=== PATIENT | female | born 1990 | race Caucasian/White ===

== ENCOUNTER 2018-10-12 12:11 | Emergency (ER) | payer OTHER ==
[~2018-10-12] VITALS: Ht 170.2 cm; Wt 155.0 kg
[2018-10-12] MEDS ORDERED: SODIUM CHLORIDE 0.9% 1,000 ML IV ONE (12:53)
[2018-10-12 14:53] LABS: CLARITY URINE CLEAR (CLEAR); COLOR URINE YELLOW (YELLOW); KETONES URINE NEGATIVE (NEGATIVE); LEUKOCYTE ESTERASE URINE NEGATIVE (NEGATIVE); NITRITE URINE NEGATIVE (NEGATIVE); OCCULT BLOOD URINE NEGATIVE (NEGATIVE); PROTEIN URINE NEGATIVE (NEGATIVE); SPECIFIC GRAVITY URINE 1.008 (1.005-1.030); UROBILINOGEN URINE 0.2 E.U./dL (0.2-1.0)
[2018-10-12 15:53] LABS: BASOPHILS % 0.9 % (0.0-2.0); EOSINOPHILS % 3.2 % (0.0-5.0); HEMATOCRIT. 38.9 % (36.0-48.0); LYMPHOCYTES % 27.9 % (20.0-50.0); MEAN CORPUSCULAR HEMOGLOBIN 28.6 pg (28.0-32.0); MEAN CORPUSCULAR VOLUME 85.5 fL (81.0-99.0); MEAN PLATELET VOLUME 8.4 fl (7.4-10.4); MONOCYTES % 6.7 % (2.0-8.0); NEUTROPHILS % 61.3 % (40.0-76.0); PLATELET 266 x1000/uL (130-400); RED BLOOD CELL COUNT 4.56 mill/uL (4.2-5.4); RED CELL DISTRIBUTION WIDTH 14.2 % (11.6-14.6)
[2018-10-12 15:55] LABS: CHLORIDE 108 mEq/L (98-107)
[2018-10-12] MEDS ORDERED: ACETAMINOPHEN 325MG TABLET PO ONE (16:00)
[2018-10-12 16:02] LABS: HCG SCREEN NEGATIVE
[2018-10-12 16:05] LABS: B-HCG QUANTITATIVE 6 mIU/mL (<3)
[2018-10-12 17:43] VITALS: BP 125/66
== END 2018-10-12 17:44 | disposition home or self-care (01) ==
LOC: ER 12:11
DX: O20.0 Threatened abortion (principal); F17.200 Nicotine dependence, unspecified, uncomplicated; Z90.49 Acquired absence of other specified parts of digestive tract; Z3A.00 Weeks of gestation of pregnancy not specified
CPT/HCPCS: 36415; 76830; 76856; 80053; 81003; 81025; 84702; 84703; 85025; 86850; 86900; 86901; 96360; 99284; J7030

== ENCOUNTER 2018-10-15 18:28 | Emergency (ER) | payer OTHER ==
[~2018-10-15] VITALS: Ht 170.2 cm; Wt 155.0 kg
[2018-10-15 22:17] VITALS: BP 134/88
== END 2018-10-15 22:18 | disposition home or self-care (01) ==
LOC: ER 18:28
DX: O03.9 Complete or unspecified spontaneous abortion without complication (principal); F17.200 Nicotine dependence, unspecified, uncomplicated
CPT/HCPCS: 36415; 84702; 99283